=== PATIENT | female | born 1980 | race African-American/Black ===

== ENCOUNTER 2024-05-16 12:59 | Emergency (ER) | payer MEDICAID ==
[~2024-05-16] VITALS: Ht 162.6 cm; Wt 50.0 kg
[2024-05-16 13:04] VITALS: PULSE 135; O2SAT 99
[2024-05-16 13:11] VITALS: BP 117/74; RESP 18; TEMP 98.4; O2SAT 100
[2024-05-16] MEDS ORDERED: BO1 TP (14:46)
== END 2024-05-16 14:54 | disposition home or self-care (01) ==
LOC: ER 13:15
DX: S01.81XA Laceration without foreign body of other part of head, initial encounter (principal); W18.09XA Striking against other object with subsequent fall, initial encounter; Y93.89 Activity, other specified; Y92.89 Other specified places as the place of occurrence of the external cause; Y99.8 Other external cause status
CPT/HCPCS: 99282

== ENCOUNTER 2024-05-18 09:42 | Emergency (ER) | payer MEDICAID ==
[~2024-05-18] VITALS: Ht 160 cm; Wt 46.7 kg
[~2024-05-18 09:42] MED LIST: BO1 TP
[2024-05-18 09:55] VITALS: O2SAT 100
[2024-05-18 10:18] VITALS: BP 121/76; PULSE 88; RESP 16; TEMP 36.78072; O2SAT 100
== END 2024-05-18 10:56 | disposition home or self-care (01) ==
LOC: ER 10:23
DX: S01.112D Laceration without foreign body of left eyelid and periocular area, subsequent encounter (principal); Z48.00 Encounter for change or removal of nonsurgical wound dressing; Z98.890 Other specified postprocedural states; X58.XXXD Exposure to other specified factors, subsequent encounter
CPT/HCPCS: 99281